=== PATIENT | male | born 1985 | race Caucasian/White ===

== ENCOUNTER 2017-07-15 14:40 | Emergency (ER) | payer OTHER ==
[2017-07-15] MEDS ORDERED: fentaNYL 100 MCG/2 ML INJ ONE (15:01)
[2017-07-15] MEDS ORDERED: OXYCODONE/APAP 5/325 TAB ONE (15:33)
[2017-07-15] MEDS ORDERED: IBUPROFEN 600 MG TAB PO ONE ×2 (15:34→15:50)
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
[2017-07-15] MEDS ORDERED: OXYCODONE/APAP 5/325 TAB PO ONE (15:50)
[2017-07-15 16:33] VITALS: BP 160/85
== END 2017-07-15 16:32 | disposition home or self-care (01) ==
DX: S82.831A Other fracture of upper and lower end of right fibula, initial encounter for closed fracture (principal); S83.91XA Sprain of unspecified site of right knee, initial encounter; V86.56XA Driver of dirt bike or motor/cross bike injured in nontraffic accident, initial encounter; Y92.410 Unspecified street and highway as the place of occurrence of the external cause; Y99.8 Other external cause status; Y93.55 Activity, bike riding
CPT/HCPCS: J3010; L1830